=== PATIENT | male | born 1965 | race Two or more races ===

== ENCOUNTER 2023-03-30 18:12 | Emergency (ER) | payer OTHER ==
[~2023-03-30] VITALS: Ht 172.7 cm; Wt 62.6 kg
[2023-03-30] MEDS ORDERED: ALTOPREV20 MG PO (19:00)
[2023-03-30 20:58] LABS: HEMATOCRIT 44.2 % (39.0-48.0); HEMOGLOBIN 14.7 g/dL (13-16.00); MEAN CELL VOLUME 88.5 fL (80.0-100.00); MEAN CORPUSCULAR HEMOGLOBIN 29.5 pg (27.00-32.0); MEAN CORPUSCULAR HGB CONC 33.3 g/dl (32.0-36.0); PLATELET COUNT 203 K/uL (150-450); RED BLOOD COUNT 4.99 M/uL (4.00-6.00); RED CELL DISTRIBUTION WIDTH 14.1 % (11.5-14.5)
== END 2023-03-31 00:05 | disposition home or self-care (01) ==
LOC: ER 18:13
PROVIDERS: Emergency Medicine
DX: J10.1 Influenza due to other identified influenza virus with other respiratory manifestations (principal); R05.8 Other specified cough; Z20.822 Contact with and (suspected) exposure to COVID-19